=== PATIENT | male | born 1935 | race Two or more races ===

== ENCOUNTER 2018-04-13 10:36 | Outpatient (CLI) | payer OTHER | END 2018-04-13 10:41 | disposition home or self-care (01) | LOC: RAD 10:36 | DX: S33.5XXA Sprain of ligaments of lumbar spine, initial encounter (principal) ==

== ENCOUNTER 2018-07-07 13:06 | Outpatient (CLI) | payer OTHER | END 2018-07-07 13:23 | disposition home or self-care (01) | LOC: RAD 13:06 | DX: M13.812 Other specified arthritis, left shoulder (principal) ==

== ENCOUNTER 2018-10-29 07:08 | Outpatient (CLI) | payer OTHER | END 2018-10-29 07:12 | disposition home or self-care (01) | LOC: SONOGRAMA 07:08 → MAMO-SONO 08:15 | DX: R31.0 Gross hematuria (principal) ==

== ENCOUNTER 2018-12-22 07:04 | Outpatient (CLI) | payer OTHER | END 2018-12-22 07:07 | disposition home or self-care (01) | LOC: SONOGRAMA 07:04 → MAMO-SONO 07:15 | DX: R10.84 Generalized abdominal pain (principal) ==

== ENCOUNTER → 2019-05-28 | Outpatient (CLI) | payer OTHER | END | disposition home or self-care (01) | LOC: RAD 12:21 | DX: M75.32 Calcific tendinitis of left shoulder (principal) ==

== ENCOUNTER 2019-06-02 10:03 | Outpatient (CLI) | payer OTHER | END 2019-06-02 10:04 | disposition home or self-care (01) | LOC: NUCLEAR 10:03 | DX: M81.0 Age-related osteoporosis without current pathological fracture (principal) ==

== ENCOUNTER 2019-07-02 07:53 | Outpatient (CLI) | payer OTHER | END 2019-07-02 07:57 | disposition home or self-care (01) | LOC: MRI 07:53 | DX: M75.102 Unspecified rotator cuff tear or rupture of left shoulder, not specified as traumatic (principal) | CPT/HCPCS: 73218; 73221 ==

== ENCOUNTER 2020-06-20 11:56 | Outpatient (CLI) | payer OTHER | END 2020-06-20 12:02 | disposition home or self-care (01) | LOC: RAD 11:56 | DX: M25.561 Pain in right knee (principal) ==

== ENCOUNTER 2024-12-30 08:31 | Outpatient (CLI) | payer OTHER | END 2024-12-30 08:41 | disposition home or self-care (01) | LOC: TOM 08:31 | DX: J45.991 Cough variant asthma (principal); R91.1 Solitary pulmonary nodule ==

== ENCOUNTER 2025-04-04 10:07 | Outpatient (CLI) | payer OTHER | END 2025-04-04 10:16 | disposition home or self-care (01) | LOC: RAD 10:07 | PROVIDERS: ATTEND Urology | DX: R97.20 Elevated prostate specific antigen [PSA] (principal); R31.0 Gross hematuria; R35.0 Frequency of micturition ==

== ENCOUNTER 2025-05-10 12:25 | Outpatient (CLI) | payer OTHER | END 2025-05-10 12:35 | disposition home or self-care (01) | LOC: TOM 12:25 | PROVIDERS: ATTEND Urology | DX: N40.1 Benign prostatic hyperplasia with lower urinary tract symptoms (principal); N20.0 Calculus of kidney; R97.20 Elevated prostate specific antigen [PSA]; R31.0 Gross hematuria ==

== ENCOUNTER 2025-07-13 09:41 | Outpatient (CLI) | payer OTHER | END 2025-07-13 09:45 | disposition home or self-care (01) | LOC: RAD 09:41 | PROVIDERS: ATTEND Urology | DX: R31.0 Gross hematuria (principal); N40.1 Benign prostatic hyperplasia with lower urinary tract symptoms; N20.0 Calculus of kidney ==

== ENCOUNTER 2025-08-24 11:01 | Inpatient (IN) | payer OTHER ==
[~2025-08-24] VITALS: Ht 157.5 cm; Wt 59.9 kg
[2025-08-24] MEDS ORDERED: ATORVASTATIN CA20 MG PO (11:39)
[2025-08-24] MEDS ORDERED: AMLODIPINE-OLM1 EAC2 PO (11:39)
--- NOTE | 2025-08-24 11:41 | NUR ---
PACIENTE ALERTA Y ORIENTADO X3. REFIERE COMENZAR CON DOLOR ABDOMINAL DESDE HACE UNOS BELL QUE NO MEJORA. NO REFIERE NAUSEAS, VOMITOS O DIARREAS. SE CINDI S/V Y SE UBICA.
[2025-08-24] MEDS ORDERED: 0.9 % SODIUM CHLORIDE 1,000 ML IV ONE (12:30)
[2025-08-24] MEDS ORDERED: FAMOTIDINE/PF 20 MG/2 ML VIAL IV ONE (12:30)
[2025-08-24] MEDS ORDERED: ONDANSETRON HCL 2 MG/ML VIAL IV ONE (12:30)
[2025-08-24] MEDS ORDERED: MAG HYDROX/ALUMINUM HYD/SIMETH 30 ML BLIST.PACK PO ONE ×2 (12:30→12:53)
[2025-08-24] MEDS ORDERED: FAMOTIDINE/PF 20 MG/2 ML VIAL ONE (12:53)
[2025-08-24] MEDS ORDERED: ONDANSETRON HCL 2 MG/ML VIAL ONE (12:53)
[2025-08-24 13:50] LABS: BASO % 0.5 % (0.1-1.2); EOS # 1.15 (0.04-0.54); EOS % 13.7 % (0.7-7.0); LYMPH # 2.58 (1.18-3.74); LYMPH % 30.8 % (19.3-53.1); MEAN PLATELET VOLUME 9.70 fl (9.4-12.4); MONO # 0.75 (0.24-0.82); MONO % 8.9 % (4.7-12.5); NEUT # 3.85 (1.56-6.13); NEUT % 45.9 % (34.0-71.1); RED CELL DISTRIBUTION WIDTH 14.6 % (11.6-14.4)
--- NOTE | 2025-08-24 13:55 | NUR ---
PACIENTE EVALUADO POR QUIEN ORDENA TRATAMIENTO MEDICO, RN CHAPMAN LE ORIENTA A PACIENTE SOBRE EL MISMO Y REFIERE ENTENDER, LE COLECTA MUESTRAS, LE CANALIZA Y LE ADMINSITRA MEDICAMENTOS TRAY ORDEN, PACIENTE TOLERA Y SE MANTIENE BAJO OBSERVACION.
[2025-08-24 14:25] LABS: INR 1.01
[2025-08-24 14:41] LABS: ALT/SGPT 25.0 U/L (12-78); AST/SGOT 23.0 U/L (15-37); BILIRUBIN TOTAL 0.53 mg/dL (0.3-1.2); BUN CREA RATIO 19.0 (7.0-25.0); CREATININE SERUM 1.24 mg/dL (0.70-1.30); GFR 55.02; GLOBULINA 3.8 G/DL (2.4-3.5); GLUCOSE FASTING 102.0 mg/dL (65-100); OSMOLALITY SERUM 284.0 MOSM/KG (275-295)
[2025-08-24] MEDS ORDERED: KETOROLAC TROMETHAMINE 30 MG VIAL IV ONE (15:45)
[2025-08-24] MEDS ORDERED: PIPERACILLIN/TAZOBACTAM SODIUM 3.375 GM VIAL IV ONE ×2 (15:45)
[2025-08-24] MEDS ORDERED: KETOROLAC TROMETHAMINE 30 MG VIAL ONE (15:45)
[2025-08-24] MEDS ORDERED: 0.9 % SODIUM CHLORIDE 1,000 ML IV SCH (19:45)
[2025-08-24] MEDS ORDERED: CIPROFLOXACIN IN 5 % DEXTROSE 400 MG/200 ML PIGGYBAG IV ONE (20:00)
[2025-08-24 20:14] VITALS: BP 130/90
[2025-08-24] MEDS ORDERED: CIPROFLOXACIN IN 5 % DEXTROSE 200 ML IV SCH (21:00)
[2025-08-25 08:06] LABS: BASO % 0.5 % (0.1-1.2); EOS # 1.09 (0.04-0.54); EOS % 12.9 % (0.7-7.0); LYMPH # 1.87 (1.18-3.74); LYMPH % 22.2 % (19.3-53.1); MEAN PLATELET VOLUME 10.00 fl (9.4-12.4); MONO # 0.71 (0.24-0.82); MONO % 8.4 % (4.7-12.5); NEUT # 4.70 (1.56-6.13); NEUT % 55.8 % (34.0-71.1); RED CELL DISTRIBUTION WIDTH 14.6 % (11.6-14.4)
[2025-08-25 08:53] LABS: INR 1.05
[2025-08-25] MEDS ORDERED: FAMOTIDINE/PF 20 MG in 0.9 % SODIUM CHLORIDE 100 ML IV SCH (09:00)
[2025-08-25] MEDS ORDERED: SIMVASTATIN 10 MG TABLET PO SCH (09:00)
[2025-08-25] MEDS ORDERED: AMLODIPINE BESYLATE 5 MG TABLET PO SCH (09:00)
[2025-08-25] MEDS ORDERED: ENOXAPARIN SODIUM 40 MG/0.4 ML SYRINGE SUBCUTANEO SCH (09:00)
[2025-08-25 09:06] LABS: BUN CREA RATIO 17.0 (7.0-25.0); CREATININE SERUM 1.12 mg/dL (0.70-1.30); GFR 61.87; GLUCOSE FASTING 83.0 mg/dL (65-100); OSMOLALITY SERUM 283.0 MOSM/KG (275-295)
[2025-08-25 09:22] VITALS: BP 148/76; O2SAT 96
[2025-08-25 18:46] VITALS: BP 160/71; O2SAT 98
[2025-08-25 21:20] VITALS: BP 142/79
[2025-08-26 01:41] VITALS: BP 151/54; O2SAT 96
[2025-08-26 08:31] VITALS: BP 170/75; O2SAT 97
[2025-08-26] MEDS ORDERED: ENALAPRILAT DIHYDRATE 1.25 MG/ML VIAL IV PRN (13:15)
[2025-08-26 18:27] VITALS: BP 131/66; O2SAT 98
[2025-08-27 05:48] VITALS: BP 122/62; O2SAT 96
[2025-08-27] MEDS ORDERED: AMLODIPINE BESYLATE 10 MG TABLET PO SCH (09:00)
[2025-08-27 11:32] VITALS: BP 135/76; O2SAT 98
== END 2025-08-27 15:04 | disposition home or self-care (01) | DRG 446 ==
LOC: ER 11:01 → MEDJ 19:41
PROVIDERS: ADMIT Internal Medicine; ATTEND Internal Medicine
PROC: BW21ZZZ Computerized Tomography (CT Scan) of Abdomen and Pelvis (ICD-10-PCS; principal; 2025-08-24)
PROC: BW40ZZZ Ultrasonography of Abdomen (ICD-10-PCS; 2025-08-24)
DX: K81.0 Acute cholecystitis (principal); I10 Essential (primary) hypertension